=== PATIENT | female | born 1990 | race African-American/Black ===

== ENCOUNTER 2018-12-03 09:23 | Inpatient (IN) | payer OTHER ==
[2018-12-03 10:07] VITALS: BMI 31.3
[2018-12-03] MEDS ORDERED: hydrALAZINE 20 MG/ML VIAL SLOW IVP PRN ×3 (10:38→23:15)
--- NOTE | 2018-12-03 14:43 | ULT ---
ULTRASOUND BIOPHYSICAL PROFILE: DATE: 12/03/2018 HISTORY: 28-year-old female in third trimester of with nonreactive nonstress test. FINDINGS: breathin tone: 2 movement: 2 Amniotic fluid volume: 2 lie: Vertex Placenta: Anterior. ABIGAIL: 6.5 cm heart rate: 147 bpm IMPRESSION: Normal biophysical profile score of 8 out of 8, excluding the nonstress test.
[2018-12-03] MEDS ORDERED: Ibuprofen 800 MG TAB PO PRN (15:12)
[2018-12-03] MEDS ORDERED: Lidocaine 1% (PF) 30 ML VIAL SC PRN (15:12)
[2018-12-03] MEDS ORDERED: Misoprostol 200 MCG TAB PR PRN (15:12)
[2018-12-03] MEDS ORDERED: Methylergonovine 0.2 MG/ML VIAL IM PRN (15:12)
[2018-12-03] MEDS ORDERED: Ondansetron PF 4 MG/2 ML Vial IVP PRN ×2 (15:12→23:15)
[2018-12-03] MEDS ORDERED: Butorphanol Tartrate 1 MG/ML VIAL SLOW IVP PRN (15:12)
[2018-12-03] MEDS ORDERED: NS w/ Oxytocin 10 units 500 ML IV SCH (15:15)
[2018-12-03] MEDS ORDERED: Dextrose 5%-Lactated Ringers 1,000 ML IV SCH (15:15)
[2018-12-03] MEDS ORDERED: Lactated Ringer's 1,000 ML IV SCH (15:15)
[2018-12-03] MEDS ORDERED: Penicillin G Potassium 5 MILL.UNITS in Sodium Chloride 0.9% 100 ML IVPB SCH (15:30)
[2018-12-03 15:46] LABS: Hemoglobin 11.7 g/dL (12.0-16.0); Mean Corpuscular HGB CONC 33.6 g/dL (32.0-36.0); Mean Corpuscular Hemoglobin 27.8 pg (27.0-31.0); Mean Corpuscular Volume 82.9 fL (78.0-98.0); Mean Platelet Volume 7.7 fL (7.4-10.4); Platelet Count 284 thou/uL (130-400); RBC Distribution Width 14.4 % (11.5-14.5); Red Blood Cell (RBC) Count 4.19 mill/uL (4.20-5.40); White Blood Cell (WBC) Count 6.2 thou/uL (4.8-10.8)
[2018-12-03 16:27] LABS: Syphilis Antibody Nonreactive (Nonreactive); Syphilis Antibody Index 0.06 S/CO (<1.00 Non-Reactive)
[2018-12-03 16:28] LABS: HBSAg Index 0.18 S/CO (0-0.99); HIV (1/2) Antibody/Antigen Non-Reactive (NonReactive); HIV 1/2 INDEX 0.09 S/CO (<1.00); Hep B Surf Ag Non-Reactive S/CO (NonReactive)
[2018-12-03] MEDS ORDERED: Fentanyl 4 mcg/Bup 0.1% Cadd 0 ML ONE (18:51)
[2018-12-03] MEDS: NS / Oxytocin 40 units/1000ml 1,000 ML IV PRN ×2 (19:30→21:07)
[2018-12-03] MEDS ORDERED: Penicillin G 2.5 MILL.units 2.5 MILL.UNITS in Premix Bag 1 BAG IVPB SCH (20:00)
[2018-12-03] MEDS ORDERED: Milk Of Magnesia 30 ML UDCUP PO PRN (23:15)
[2018-12-03] MEDS ORDERED: diphenhydrAMINE 25 MG CAP PO PRN (23:15)
[2018-12-03] MEDS ORDERED: Bisacodyl 10 MG SUPP PR PRN (23:15)
[2018-12-03] MEDS ORDERED: Lanolin Ointment 7 GM TUBE TOP PRN (23:15)
[2018-12-03] MEDS ORDERED: NS / Oxytocin 40 units/1000ml 1,000 ML IV SCH (23:15)
[2018-12-03] MEDS ORDERED: Ibuprofen 800 MG TAB PO SCH (23:30)
[2018-12-03] MEDS ORDERED: Docusate Calcium (SURFAK) 240 MG CAP PO SCH (23:30)
--- NOTE | 2018-12-04 00:19 | DN ---
DATE OF PROCEDURE: 12/03/2018 The patient is a 28-year-old multiparous female, who had a female on 12/03/2018 at 1924 hours by an uncomplicated term spontaneous vaginal delivery. Apgars were 8 and 9. Weight unavailable at time of dictation. Placenta delivered spontaneously followed by Pitocin infusion. There were no lacerations. Quantitative blood loss was [address] Buckley is the delivering physician. Counts were correct. Mother and baby are stable in the room in the immediate . Job ID: [id number]
[2018-12-04] MEDS: Ibuprofen 800 MG TAB PO SCH ×3 (05:49→21:11)
[2018-12-04 06:19] LABS: Hemoglobin 11.4 g/dL (12.0-16.0)
[2018-12-04] MEDS ORDERED: Adacel (T-DAP) 0.5 ML SYRINGE IM ONE (09:00)
[2018-12-04] MEDS ORDERED: FLU VACC QS2019-20(6MOS UP)/PF 60 MCG/0.5 ML SYRINGE IM ONE (09:00)
[2018-12-04] MEDS ORDERED: Prenatal Vitamin 1 TAB PO SCH (09:00)
[2018-12-04] MEDS: Ferrous Sulfate 325 MG TAB PO SCH ×2 (09:03→17:31)
[2018-12-04] MEDS: Docusate Calcium (SURFAK) 240 MG CAP PO SCH ×2 (09:07→21:11)
--- NOTE | 2018-12-04 12:21 | DIS ---
DATE OF ADMISSION: 12/03/2018 DATE OF DISCHARGE: 12/04/2018 ADMITTING DIAGNOSES: 1. Intrauterine at 39 weeks. 2. Category II heart tracing. 3. Borderline oligohydramnios. DISCHARGE DIAGNOSES: 1. Intrauterine at 39 weeks. 2. Category II heart tracing. 3. Borderline oligohydramnios. PROCEDURE: Term spontaneous vaginal delivery. CONSULTATIONS: None. HOSPITAL COURSE: The patient is a 28-year-old multiparous female, who presented to Labor and Delivery for some isolated vaginal bleeding and during her evaluation, the patient was noted a fetus with a category II tracing and borderline oligohydramnios with an ABIGAIL of 6. BPP was 8/8, and in the cervical exam of 4 cm. However, given the whole picture and unable to explain clearly the findings, decision was made with Dr. Bullard's blessing to keep her for induction of labor. The patient had uncomplicated labor course and delivered by term spontaneous vaginal delivery. For complete details, please refer to the delivery note. The patient's course has also been uncomplicated. She is now day 1. PHYSICAL EXAMINATION: GENERAL: The patient reports she is tolerating p.o., voiding on her own, and having decreased lochia and good pain control. VITAL SIGNS: This morning blood pressure is 126/75, temperature 98.1, pulse of 67, respiratory rate of 20, saturating 100% on room air. GENERAL: She is in no acute distress. She is alert, oriented, cooperative, and pleasant to interact with. GENITOURINARY: Fundus is firm. EXTREMITIES: Nontender. The patient is being discharged to home with ibuprofen p.r.n. for pain. She has instructions to follow up with Dr. Bullard in 6 weeks for routine visit or sooner, if she experiences fever, increasing pain or bleeding. Job ID: [id number]
[2018-12-04 20:25] VITALS: BP 119/72; TEMP 98.4
== END 2018-12-04 21:40 | disposition home or self-care (01) | DRG 807 ==
LOC: L&D/OP 09:23 → L&D 15:14 → 3SW 22:18
PROVIDERS: ADMIT Obstetrics & Gynecology; ATTEND Obstetrics & Gynecology
PROC: 10E0XZZ Delivery of Products of Conception, External Approach (ICD-10-PCS; principal; 2018-12-03)
PROC: 3E02340 Introduction of Influenza Vaccine into Muscle, Percutaneous Approach (ICD-10-PCS; 2018-12-04)
DX: O41.03X0 Oligohydramnios, third trimester, not applicable or unspecified (principal); Z37.0 Single live birth; Z3A.39 39 weeks gestation of pregnancy; Z23 Encounter for immunization
CPT/HCPCS: 36415; 76819; 85014; 85018; 85027; 86780; 86850; 86900; 86901; 87340; 87389; 99285; J2540; J2590